=== PATIENT | male | born 1980 | race Caucasian/White ===

== ENCOUNTER 2017-04-26 15:15 | Emergency (ER) | payer OTHER ==
[2017-04-26] MEDS ORDERED: Ondansetron 4 MG/2 ML SDV IVPUSH ONE (15:46)
[2017-04-26] MEDS ORDERED: HYDROmorphone 0.5 MG/0.5 ML Syringe IVPUSH ONE (15:46)
[2017-04-26] MEDS ORDERED: Sodium Chloride 0.9% 10 ML Syringe FLUSH PRN (15:46)
--- NOTE | 2017-04-26 15:51 | EDM.PDOC ---
ED HPI GENERAL MEDICAL PROBLEM - General Chief Complaint: Upper Extremity Injury/Pain Stated Complaint: FALL Time Seen by Provider: 04/26/17 15:41 Source of Information: Reports: Patient, RN Notes Reviewed History Limitations: Reports: No Limitations - History of Present Illness INITIAL COMMENTS - FREE TEXT/NARRATIVE: 36-year-old woman presents emergency department today following a fall at work estimates he was up on the ladder about 7 feet the ladder slipped he came down on his side landing on top of the ladder he is complaining of right sided pain in the chest and abdomen it hurts to take a deep breath, he denies any loss of consciousness there is no neck pain no headache last meal was at lunch, no past medical history no allergies Right Chest Pain Score (Numeric/FACES): 10 - Related Data Allergies Allergy/AdvReac Type Severity Reaction Status Date / Time No Known Allergies Allergy Verified 04/26/17 15:30 Home Meds: Home Meds NK [No Known Home Meds] 04/26/17 [History] Past Medical History Musculoskeletal History: Reports: Fracture - Past Surgical History Other Musculoskeletal Surgeries/Procedures:: leg surgery Social & Family History - Tobacco Use Smoking Status *Q: Heavy Tobacco Smoker Years of Tobacco use: 15 Packs/Tins Daily: 1 - Caffeine Use Caffeine Use: Reports: Coffee - Recreational Drug Use Recreational Drug Use: No Review of Systems - Review of Systems Review Of Systems: See Below Constitutional: Reports: No Symptoms Eyes: Reports: No Symptoms Ears: Reports: No Symptoms Nose: Reports: No Symptoms Mouth/Throat: Reports: No Symptoms Respiratory: Reports: Other (Hurts to take a deep breath) Cardiovascular: Reports: Chest Pain GI/Abdominal: Reports: Abdominal Pain Musculoskeletal: Reports: Muscle Pain Skin: Reports: No Symptoms Neurological: Reports: No Symptoms Psychiatric: Reports: No Symptoms ED EXAM, GENERAL - Physical Exam Exam: See Below Free Text/Narrative:: Primary survey GCS of 15, airways open patent and clear, lungs are clear to auscultation bilaterally cardiovascular demonstrates regular rate and rhythm S1- S2. Secondary survey General: Male, moderate discomfort secondary to pain, GCS of 15, alert and oriented x3 HEENT: head is atraumatic normocephalic, eyes pupils equal round reactive to light, sclera clear no conjunctivitis appreciated, extraocular eye movements intact. Ears tympanic membranes clear and soto landmarks and light reflex are present bilaterally canals are clear. Nose no septal deviation, nares are clear, no blood present. Mouth mucosa is moist and pink no erythema or exudate noted in soft palate, tongue is midline uvula is midline, dentition is intact. Neck: Supple no thyromegaly no tracheal deviation. Nontender to palpation spinally or paraspinally Nodes: Cervical nodes subclavicular nodes nontender no palpable lymphadenopathy noted. Lungs: Breath sounds are shallow but clear to auscultation bilaterally CV: Regular rate and rhythm S1 and S2 appreciated no murmurs rubs or gallops noted. Chest: I don't appreciate any bruising but he is tender along the lateral aspect of the right thorax Abdomen: Soft, tender along the right flank, no palpable masses or organomegaly appreciated, no distention no guarding bowel sounds are present, . Neuro: Cranial nerves II through XII grossly intact Skin: Warm and dry, intact Extremities: No tenderness to shoulders elbows wrists bilaterally pelvic rock's is negative no tenderness to knees or ankles bilaterally Course - Vital Signs Last Recorded V/S: Last Vital Signs Temp 96.3 F 04/26/17 15:31 Pulse 86 04/26/17 17:00 Resp 16 04/26/17 17:00 BP 170/104 H 04/26/17 17:00 Pulse Ox 97 04/26/17 17:00 - Orders/Labs/Meds Orders: Active Orders 24 hr Category Date Time Status Peripheral IV Care [RC] . DIRECTED Care 04/26/17 15:47 Active Chest Abdomen Pelvis w Cont [CT] Stat Exams 04/26/17 15:46 Taken Iopamidol [Isovue-300 (61%)] Med 04/26/17 16:00 Active 100 ml IV . DIRECTED Sodium Chloride 0.9% [Normal Saline] 80 ml Med 04/26/17 16:00 Active IV ASDIRECTED Sodium Chloride 0.9% [Saline Flush] Med 04/26/17 15:46 Active 10 ml FLUSH ASDIRECTED PRN Peripheral IV Insertion Adult [OM.PC] Urgent Oth 04/26/17 15:46 Ordered Medication Orders Sodium Chloride (Normal Saline) 80 mls @ 3 mls/sec IV ASDIRECTED GRACE Last Admin: 04/26/17 16:05 Dose: 3 mls/sec Iopamidol (Isovue-300 (61%)) 100 ml IV . DIRECTED GRACE Last Admin: 04/26/17 16:05 Dose: 100 ml Sodium Chloride (Saline Flush) 10 ml FLUSH ASDIRECTED PRN PRN Reason: Keep Vein Open Last Admin: 04/26/17 16:13 Dose: 10 ml Labs: Laboratory Tests 04/26/17 04/26/17 Range/Units 16:37 16:37 WBC 10.9 (4.5-11.0) K/uL RBC 4.45 (4.30-5.90) M/uL Hgb 13.7 (12.0-15.0) g/dL Hct 40.9 (40.0-54.0) % MCV 92 (80-98) fL MCH 31 (27-31) pg MCHC 34 (32-36) % Plt Count 236 (150-400) K/uL Neut % (Auto) 81 H (36-66) % Lymph % (Auto) 12 L (24-44) % [place] % (Auto) 6 (2-6) % Eos % (Auto) 0 L (2-4) % Baso % (Auto) 0 (0-1) % Sodium 137 L (140-148) mmol/L Potassium 3.6 (3.6-5.2) mmol/L Chloride 101 (100-108) mmol/L Carbon Dioxide 29 (21-32) mmol/L Anion Gap 10.6 (5.0-14.0) mmol/L BUN 15 (7-18) mg/dL Creatinine 0.9 (0.8-1.3) mg/dL Est Cr Clr Drug Dosing 120.85 mL/min Estimated GFR (MDRD) > 60 (>60) Glucose 114 H (74-106) mg/dL Calcium 9.2 (8.5-10.1) mg/dL Total Bilirubin 0.3 (0.2-1.0) mg/dL AST 688 H (15-37) U/L ALT 574 H (12-78) U/L Alkaline Phosphatase 73 (46-116) U/L Total Protein 6.7 (6.4-8.2) g/dL Albumin 3.6 (3.4-5.0) g/dL Globulin 3.1 (2.3-3.5) g/dL Albumin/Globulin Ratio 1.2 (1.2-2.2) Meds: Medications Generic Name Dose Route Start Last Admin Trade Name Freq PRN Reason Stop Dose Admin Sodium Chloride 80 mls @ 3 mls/sec 04/26/17 16:00 04/26/17 16:05 Normal Saline IV 3 mls/sec ASDIRECTED GRACE Administration Iopamidol 100 ml 04/26/17 16:00 04/26/17 16:05 Isovue-300 (61%) IV 100 ml . DIRECTED GRACE Administration Sodium Chloride 10 ml 04/26/17 15:46 04/26/17 16:13 Saline Flush FLUSH 10 ml ASDIRECTED PRN Administration Keep Vein Open Discontinued Medications Generic Name Dose Route Start Last Admin Trade Name Freq PRN Reason Stop Dose Admin Hydromorphone HCl 0.5 mg 04/26/17 15:46 04/26/17 16:10 Dilaudid IVPUSH 04/26/17 15:47 0.5 mg ONETIME ONE Administration Hydromorphone HCl 1 mg 04/26/17 17:16 04/26/17 17:21 Dilaudid IVPUSH 04/26/17 17:17 1 mg ONETIME ONE Administration Lactated Ringer's 1,000 mls @ 999 mls/hr 04/26/17 15:56 04/26/17 16:12 Ringers, Lactated IV 04/26/17 16:56 999 mls/hr BOLUS ONE Administration Ondansetron HCl 4 mg 04/26/17 15:46 04/26/17 16:11 Zofran IVPUSH 04/26/17 15:47 4 mg ONETIME ONE Administration Departure - Departure Time of Disposition: 17:31 Disposition: DC/Tfer to Acute Hospital 02 Condition: Good Clinical Impression: Liver laceration, grade IV, without open wound into cavity Qualifiers: Encounter type: initial encounter Qualified Code(s): S36.116A - Major laceration of liver, initial encounter - Discharge Information Referrals: PCP,None [Primary Care Provider] - Forms: ED Department Discharge - My Orders Last 24 Hours: My Active Orders 04/26/17 15:46 Chest Abdomen Pelvis w Cont [CT] Stat Sodium Chloride 0.9% [Saline Flush] 10 ml FLUSH ASDIRECTED PRN Peripheral IV Insertion Adult [OM.PC] Urgent 04/26/17 15:47 Peripheral IV Care [RC] . DIRECTED 04/26/17 16:00 Iopamidol [Isovue-300 (61%)] 100 ml IV . DIRECTED Sodium Chloride 0.9% [Normal Saline] 80 ml IV ASDIRECTED - Assessment/Plan Last 24 Hours: My Active Orders 04/26/17 15:46 Chest Abdomen Pelvis w Cont [CT] Stat Sodium Chloride 0.9% [Saline Flush] 10 ml FLUSH ASDIRECTED PRN Peripheral IV Insertion Adult [OM.PC] Urgent 04/26/17 15:47 Peripheral IV Care [RC] . DIRECTED 04/26/17 16:00 Iopamidol [Isovue-300 (61%)] 100 ml IV . DIRECTED Sodium Chloride 0.9% [Normal Saline] 80 ml IV ASDIRECTED Plan: Assessment Acuity = acute Site and laterality = grade 4-5 liver laceration Etiology = secondary to trauma Manifestations = none Location of injury = Home Lab values = hemoglobin stable at 13.7, liver enzymes AST elevated at 68 ALTs elevated at 579, CT scan chest abdomen pelvis describes the injury above Plan Called and discussed case with Dr. Hernandes emergency room physician at my clinic next door kindly accepted the patient in transport recommended sending a unit of blood with in transport for the possibility of hypotension unfortunately we have no resources available blood at this facility at this time Patient was in agreement with the plan all questions were answered, This note was dictated using [employer] voice recognition software please call with any questions.
[2017-04-26] MEDS ORDERED: Lactated Ringers 1,000 ML IV ONE (15:56)
[2017-04-26] MEDS ORDERED: Iopamidol 612 MG/ML 100 ML Bottle IV SCH (16:00)
[2017-04-26] MEDS ORDERED: Sodium Chloride 0.9% 80 ML IV SCH (16:00)
[2017-04-26] MEDS ORDERED: HYDROmorphone 1 MG/ML Syringe IVPUSH ONE (17:16)
== END 2017-04-26 17:52 ==
LOC: JP.ED 15:15
DX: S36.116A Major laceration of liver, initial encounter (principal); F17.210 Nicotine dependence, cigarettes, uncomplicated; W11.XXXA Fall on and from ladder, initial encounter; Y99.0 Civilian activity done for income or pay
CPT/HCPCS: 36415; 71260; 74177; 80053; 85025; 96361; 96374; 96375; 96376; 99285; J1170; J2405; J7030; J7050; J7120; Q9967